=== PATIENT | female | born 1945 | race Caucasian/White ===

== ENCOUNTER 2022-02-14 16:30 | Inpatient (IN) ==
[2022-02-14] MEDS: Heparin DRIP 25,000 UNITS BAG 25,000 UNITS/500 ML BAG IV SCH (16:30)
[2022-02-14] MEDS ORDERED: Heparin DRIP 25,000 UNITS BAG 25,000 UNITS/500 ML BAG ONE (16:48)
[2022-02-14] MEDS ORDERED: Norepinephrine 16MCG/ML BAGD5W 4,000 MCG/250 ML BAG IV ONE (16:48)
[2022-02-14] MEDS ORDERED: Ondansetron 4 mg VIAL 2 MG/ML 2 ml VIAL IV PRN (16:53)
[2022-02-14 17:11] LABS: ABS Basophils 0.1 10^3/ul (0-0.2); ABS Eosinophils 0.1 10^3/ul (0-0.6); ABS Lymphocytes 1.5 10^3/ul (1.0-4.8); ABS Monocytes 0.7 10^3/ul (0-0.8); ABS Neutrophils 8.5 10^3/ul (1.5-7.7); Eosinophil % 0.7 %; Hematocrit 31 % (35-47); Hemoglobin 10.3 g/dL (12.0-16.0); Lymphocyte % 13.9 %; Mean Corpuscular HGB Conc 33 g/dL (31-36); Mean Corpuscular Hemoglobin 30 pg (27-31); Mean Corpuscular Volume 90 fL (80-97); Mean Platelet Volume 6.9 fL (7.4-10.4); Platelet Count 387 10^3/uL (150-450); Red Blood Count 3.43 10^6 /uL (3.70-4.87); Red Cell Distribution Width 15 % (10-15); White Blood Count 10.9 10^3/uL (3.5-10.8)
[2022-02-14] MEDS ORDERED: Senna TAB 8.6 mg TAB PO PRN (17:49)
[2022-02-14] MEDS ORDERED: Norepinephrine 16MCG/ML BAG NS 4,000 MCG/250 ML BAG IV SCH (18:00)
[2022-02-14] MEDS ORDERED: Norepinephrine 16MCG/ML BAGD5W 4,000 MCG/250 ML BAG IV SCH (18:00)
[2022-02-14] MEDS ORDERED: Heparin 5000 UNITS/ML 1 mL VIAL IV SCH (19:00)
[2022-02-14 19:21] LABS: INR 1.11 (0.86-1.15)
[2022-02-14 19:25] LABS: Magnesium 1.3 mg/dL (1.9-2.7); eGFR CKD-EPI 54.2 (>60)
[2022-02-14 20:29] LABS: Potassium 3.2 mmol/L (3.5-5.0)
[2022-02-14 20:34] LABS: High Sensitivity Troponin 1 Hr 282 pg/mL (<15)
[2022-02-14] MEDS ORDERED: Nicotine GUM 4MG FRUIT FLAVOR PO PRN (22:23)
[2022-02-14] MEDS ORDERED: Magnesium Sulf 4 GM/100 ML IV 4,000 MG/100 ML BAG IVPB ONE (22:47)
[2022-02-14] MEDS ORDERED: Potassium Chlor 20 meq TAB.ER PO ONE (22:48)
[2022-02-15 00:01] LABS: Phosphorus 3.1 mg/dL (2.5-5.0)
[2022-02-15 03:06] LABS: Urine Appearance Clear; Urine Bilirubin Negative (Negative); Urine Blood Negative (Negative); Urine Color Yellow; Urine Glucose Negative (Negative); Urine Ketones Negative (Negative); Urine Nitrite Negative (Negative); Urine Protein Negative (Negative); Urine Specific Gravity 1.017 (1.002-1.030); Urine Urobilinogen Negative (Negative)
[2022-02-15 03:13] LABS: Urine Bacteria Absent (Absent); Urine Red Blood Cell Trace(0-2/hpf) (Absent); Urine Squamous Epithelial Cell Present (Absent); Urine White Blood Cell Trace(0-5/hpf) (Absent)
[2022-02-15 03:38] LABS: Activated Partial Thrombo Time 74.3 seconds (26.0-38.0)
[2022-02-15 04:54] LABS: INR 1.04 (0.86-1.15)
[2022-02-15 05:17] LABS: ABS Basophils 0.1 10^3/ul (0-0.2); ABS Eosinophils 0.2 10^3/ul (0-0.6); ABS Monocytes 0.8 10^3/ul (0-0.8); ABS Neutrophils 6.8 10^3/ul (1.5-7.7); Eosinophil % 2.4 %; Hematocrit 30 % (35-47); Hemoglobin 9.9 g/dL (12.0-16.0); Mean Corpuscular HGB Conc 33 g/dL (31-36); Mean Corpuscular Hemoglobin 30 pg (27-31); Mean Corpuscular Volume 89 fL (80-97); Mean Platelet Volume 6.6 fL (7.4-10.4); Nucleated Red Blood Cells % 0.1; Platelet Count 389 10^3/uL (150-450); Red Blood Count 3.35 10^6 /uL (3.70-4.87); Red Cell Distribution Width 15 % (10-15); White Blood Count 9.8 10^3/uL (3.5-10.8)
[2022-02-15 05:45] LABS: Calcium 8.1 mg/dL (8.6-10.3); HDL Cholesterol 57.8 mg/dL; Potassium 3.8 mmol/L (3.5-5.0)
[2022-02-15] MEDS ORDERED: Potassium Chlor 20 meq TAB.ER PO ONE (05:50)
[2022-02-15] MEDS: Mometasone/Formoter 100/5 MDI INH SCH ×2 (08:43→20:02)
[2022-02-15] MEDS ORDERED: Acetylcysteine INH SOL (RT) 200 MG/ML 4 ML VIAL INH ONE (10:49)
[2022-02-15] MEDS ORDERED: Albuterol HFA INHALER 8 gm MDI INH PRN (16:55)
[2022-02-16] MEDS: Heparin DRIP 25,000 UNITS BAG 25,000 UNITS/500 ML BAG IV SCH (04:57)
[2022-02-16 07:26] LABS: ABS Basophils 0.1 10^3/ul (0-0.2); ABS Eosinophils 0.2 10^3/ul (0-0.6); ABS Lymphocytes 1.9 10^3/ul (1.0-4.8); ABS Monocytes 0.9 10^3/ul (0-0.8); ABS Neutrophils 7.8 10^3/ul (1.5-7.7); Eosinophil % 2.2 %; Hematocrit 29 % (35-47); Hemoglobin 9.9 g/dL (12.0-16.0); Lymphocyte % 17.4 %; Mean Corpuscular HGB Conc 34 g/dL (31-36); Mean Corpuscular Hemoglobin 31 pg (27-31); Mean Corpuscular Volume 89 fL (80-97); Mean Platelet Volume 6.6 fL (7.4-10.4); Nucleated Red Blood Cells % 0.1; Platelet Count 406 10^3/uL (150-450); Red Blood Count 3.24 10^6 /uL (3.70-4.87); Red Cell Distribution Width 15 % (10-15); White Blood Count 10.9 10^3/uL (3.5-10.8)
[2022-02-16] MEDS: Pancrelipase 5,000 units CAP PO SCH ×2 (08:24→12:09)
[2022-02-16] MEDS: Mometasone/Formoter 100/5 MDI INH SCH (08:34)
[2022-02-16 08:40] LABS: Calcium 8.3 mg/dL (8.6-10.3); Magnesium 1.9 mg/dL (1.9-2.7); Potassium 4.2 mmol/L (3.5-5.0); eGFR CKD-EPI 57.4 (>60)
[2022-02-16 11:29] VITALS: BP 120/79
[2022-02-16] MEDS ORDERED: COVID-19 VACCINE, MRNA(MODERNA) BOOSTER/PF 50 MCG/0.25 ML IM ONE (12:12)
== END 2022-02-16 12:53 | disposition home or self-care (01) | DRG 176 ==
LOC: ICU 16:53 → MED 02-15 17:35
PROVIDERS: ADMIT Internal Medicine; ATTEND Internal Medicine